=== PATIENT | female | born 1970 | race Caucasian/White ===

== ENCOUNTER 2023-05-16 04:39 | Day surgery (SDC) | payer OTHER ==
[2023-05-15 08:23] VITALS: BMI 38.0
[2023-05-16 10:50] VITALS: TEMP 97.6
[2023-05-16 11:03] VITALS: RESP 20
[2023-05-16 11:05] VITALS: BP 101/57; PULSE 66
== END 2023-05-16 12:01 | disposition home or self-care (01) ==
LOC: JASU-ENDO 04:39
PROVIDERS: ATTEND Internal Medicine Gastroenterology
PROC: 0DJD8ZZ Inspection of Lower Intestinal Tract, Via Natural or Artificial Opening Endoscopic (ICD-10-PCS; principal; 2023-05-16 10:00)
DX: Z12.11 Encounter for screening for malignant neoplasm of colon (principal)